=== PATIENT | female | born 1985 | race Caucasian/White ===

== ENCOUNTER 2017-12-25 19:41 | Emergency (ER) | payer SELFPAY ==
[~2017-12-25] VITALS: Ht 172.7 cm; Wt 95.5 kg
[2017-12-25 19:43] VITALS: BP 177/106; PULSE 72; RESP 16; TEMP 98.1; O2SAT 100
[2017-12-25] MEDS ORDERED: BACL10TA PO (19:53)
--- NOTE | 2017-12-25 19:55 | PD ---
HPI Chief Complaint: Back/ Neck Pain or Injury Time Seen by Provider: 19:51 Travel History International Travel<30 days: No Contact w/Intl Traveler<30days: No Traveled to known affect area: No History of Present Illness HPI 32-year-old female presents for evaluation of left-sided neck pain. She woke up this morning with this pain. The pain is a sharp pain which is worse with movement of the neck. She denies any injuries. She denies any numbness, tingling, weakness, radicular pain. She tried taking ibuprofen but the pain persisted. She has no other complaints at this time. PFS Past Medical History ?: Not LMP: beginning of December Social History Alcohol Use: No Tobacco Use: No Allergies-Medications (Allergen,Severity, Reaction): Coded Allergies: No Known Allergies (Unverified , 12/25/17) Reported Meds & Prescriptions Reported Meds & Active Scripts Active Baclofen 10 Mg Tab 10 Mg PO Q8HR 7 Days Review of Systems General / Constitutional: No: Fever, Chills HENT: No: Headaches, Vertigo Cardiovascular: No: Chest Pain or Discomfort Respiratory: No: Cough, Shortness of Breath Musculoskeletal: Positive: Pain, No: Limited ROM Skin: No Rash, No Itching Neurologic: No: Weakness Physical Exam Narrative GENERAL: Well-developed well-nourished female in no acute distress SKIN: Warm and dry. HEAD: Atraumatic. Normocephalic. EYES: Pupils equal and round. No scleral icterus. No injection or drainage. ENT: No nasal bleeding or discharge. Mucous membranes pink and moist. NECK: Trachea midline. No JVD. CARDIOVASCULAR: Regular rate and rhythm. No murmur appreciated. RESPIRATORY: No accessory muscle use. Clear to auscultation. Breath sounds equal bilaterally. GASTROINTESTINAL: Abdomen soft, non-tender, nondistended. Hepatic and splenic margins not palpable. MUSCULOSKELETAL: No obvious deformities. No clubbing. No cyanosis. No edema. There is no tenderness to palpation along the cervical midline spine or paravertebral musculature. The patient remains for range of motion of the neck. She has some pain in the left paravertebral musculature with rotational activities. Data Data Last Documented VS Vital Signs Date Time Temp Pulse Resp B/P (MAP) Pulse Ox O2 Delivery O2 Flow Rate FiO2 12/25/17 19:43 98.1 72 16 177/106 (517) 100 Orders Orders Ketorolac Inj (Toradol Inj) (12/25/17 20:00) Orphenadrine Inj (Norflex Inj) (12/25/17 20:00) [facility] Medical Decision Making Medical Screen Exam Complete: Yes Emergency Medical Condition: Yes Medical Record Reviewed: Yes Differential Diagnosis Cervical strain, spasm, radiculopathy Narrative Course The patient's pain appears to be muscular. She will be given Toradol and Norflex injections here and discharged with a short course of baclofen. Diagnosis Primary Impression: Cervical strain Additional Instructions: Medication as needed. Do not drive or drink alcohol when taking this medication. [id number] ibuprofen as needed. Alternate warm and cool compresses as needed. Return for any emergent medical conditions. Med/Other Pt SpecificInfo: Prescription(s) given Scripts Baclofen (Baclofen) 10 Mg Tab 10 MG PO Q8HR for 7 Days, TAB 0 Refills Prov: Tyrone Womack MD 12/25/17 Disposition: 01 DISCHARGE HOME Condition: Stable Magno Thapa Dec 25, 2017 19:55
[2017-12-25] MEDS ORDERED: KETOROLAC TROMETHAMINE 60 MG/2 ML (IM) VIAL IM ONE (20:00)
[2017-12-25] MEDS ORDERED: ORPHENADRINE INJ 60 MG/2 ML AMP IM ONE (20:00)
== END 2017-12-25 20:18 | disposition home or self-care (01) ==
LOC: NEPK 19:41
DX: S16.1XXA Strain of muscle, fascia and tendon at neck level, initial encounter (principal); X58.XXXA Exposure to other specified factors, initial encounter
CPT/HCPCS: 96372; 99283; J1885; J2360

== ENCOUNTER 2018-03-15 11:56 | Emergency (ER) | payer SELFPAY ==
[~2018-03-15] VITALS: Ht 172.7 cm; Wt 95.0 kg
[~2018-03-15 11:56] MED LIST: BACL10TA PO
[2018-03-15 12:00] VITALS: BP 156/72; PULSE 61; RESP 19; TEMP 98.3
[2018-03-15] MEDS ORDERED: TEGR200T PO (12:44)
[2018-03-15] MEDS ORDERED: RANI1TAB5 PO (12:44)
[2018-03-15] MEDS ORDERED: TOPA50TA7 PO (12:44)
[2018-03-15] MEDS ORDERED: SODIUM CHLOR 0.9% 1000 ML INJ 1,000 ML IV SCH (13:01)
[2018-03-15] MEDS ORDERED: SODIUM CHLORIDE 0.9% FLUSH 10 ML FLUSH IV FLUSH PRN (13:15)
[2018-03-15] MEDS ORDERED: DICYCLOMINE HCL 10 MG CAP PO ONE (13:15)
[2018-03-15] MEDS ORDERED: KETOROLAC TROMETHAMINE 30 MG/ML (IVP) VIAL IVP ONE (13:15)
--- NOTE | 2018-03-15 13:20 | PD ---
HPI Chief Complaint: Abdominal Pain Time Seen by Provider: 12:46 Travel History International Travel<30 days: No Contact w/Intl Traveler<30days: No Traveled to known affect area: No History of Present Illness HPI 32-year-old female with history of mild MR is here with complaints of left lower abdominal pain which started this morning. Patient denies nausea, vomiting, diarrhea, fever, chills, or other symptoms. She denies urinary symptoms. She is currently at the end of her menstrual cycle. She denies vaginal discharge. Pain is described as aching in the left lower quadrant. She states normal bowel movements. Pain is about a 6 out of 10. It is nonspecific. She is here with her mom. She has no known drug allergies. [facility] Past Medical History Developmental Delay: Yes GERD: Yes Medical other: Yes (TRIGEMINAL NEURALGIA) Tetanus Vaccination: Unknown Influenza Vaccination: No ?: Not LMP: 03/12/18 Past Surgical History Cholecystectomy: Yes Tonsillectomy: Yes Social History Alcohol Use: No Tobacco Use: No Substance Use: No Allergies-Medications (Allergen,Severity, Reaction): Coded Allergies: No Known Allergies (Unverified , 03/15/18) Reported Meds & Prescriptions Reported Meds & Active Scripts Active Reported Tegretol (Carbamazepine) 200 Mg Tab 100 Mg PO QID Topamax (Topiramate) 50 Mg Tab 50 Mg PO DAILY Ranitidine 75 (Ranitidine HCl) 75 Mg Tab 75 Mg PO DAILY Take 30 to 60 minutes before eating food or drinking beverages that cause heartburn. Review of Systems Except as stated in HPI: all other systems reviewed are Neg General / Constitutional: No: Fever Eyes: No: Visual changes HENT: No: Headaches Cardiovascular: No: Chest Pain or Discomfort Respiratory: No: Shortness of Breath Gastrointestinal: Positive: Abdominal Pain (See history of present illness), No : Nausea, Vomiting, Diarrhea, Indigestion, Dysphagia, Loss of Appetite Genitourinary: Positive: Vaginal Bleeding, No: Urgency, Frequency, Dysuria, Pelvic Pain (Currently menstrual), Flank Pain, Discharge Musculoskeletal: No: Pain Skin: No Rash Neurologic: No: Weakness Psychiatric: No: Depression Endocrine: No: Polydipsia Hematologic/Lymphatic: No: Easy Bruising Physical Exam Narrative GENERAL: Patient appears in no obvious distress. She is moderately obese. SKIN: Warm and dry. Normal color. Normal turgor. HEAD: Atraumatic. Normocephalic. EYES: Pupils equal and round. No scleral icterus. No injection or drainage. ENT: No nasal bleeding or discharge. Mucous membranes pink and moist. NECK: Trachea midline. No JVD. CARDIOVASCULAR: Regular rate and rhythm. RESPIRATORY: No accessory muscle use. Clear to auscultation. Breath sounds equal bilaterally. GASTROINTESTINAL: Abdomen soft, nondistended mild tenderness in the left lower quadrant, nondistended. No guarding or rebound. No palpable masses. No CVA tenderness. Normal bowel sounds in all quadrants. Hepatic and splenic margins not palpable. MUSCULOSKELETAL: Extremities without clubbing, cyanosis, or edema. No obvious deformities. NEUROLOGICAL: Awake and alert. No obvious cranial nerve deficits. Motor grossly within normal limits. Five out of 5 muscle strength in the arms and legs. Normal speech. PSYCHIATRIC: Appropriate mood and affect; insight and judgment normal. Data Data Last Documented VS Vital Signs Date Time Temp Pulse Resp B/P (MAP) Pulse Ox O2 Delivery O2 Flow Rate FiO2 03/15/18 12:00 98.3 61 19 156/72 (100) Orders Orders Complete Blood Count With Diff (03/15/18 13:) Comprehensive Metabolic Panel (03/15/18 13:) Lipase (03/15/18 13:) Urinalysis - C+S If Indicated (03/15/18 13:) Abdomen, Flat & Upright (03/15/18 ) Iv Access Insert/Monitor (03/15/18 13:) Ecg Monitoring (03/15/18 13:) Oximetry (03/15/18 13:) Sodium Chlor 0.9% 1000 Ml Inj (Ns 1000 M (03/15/18 13:01) Sodium Chloride 0.9% Flush (Ns Flush) (03/15/18 13:15) Dicyclomine (Bentyl) (03/15/18 13:15) Ketorolac Inj (Toradol Inj) (03/15/18 13:15) Ed Urine Pregnancytest Poc (03/15/18 13:01) Labs Laboratory Tests Test 03/15/18 13:00 03/15/18 13:15 Urine Color LIGHT-YELLOW Urine Turbidity CLEAR Urine pH 7.0 Urine Specific Bryan 1.010 Urine Protein NEG mg/dL Urine Glucose (UA) NEG mg/dL Urine Ketones NEG mg/dL Urine Occult Blood NEG Urine Nitrite NEG Urine Bilirubin NEG Urine Urobilinogen LESS THAN 2.0 MG/DL Urine Leukocyte Esterase NEG Urine Squamous Epithelial Cells 1 /hpf Urine Mucus FEW /lpf Microscopic Urinalysis Comment CULT NOT INDICATED White Blood Count 5.4 TH/MM3 Red Blood Count 4.62 MIL/MM3 Hemoglobin 11.7 GM/DL Hematocrit 36.1 % Mean Corpuscular Volume 78.2 FL Mean Corpuscular Hemoglobin 25.4 PG Mean Corpuscular Hemoglobin Concent 32.5 % Red Cell Distribution Width 13.9 % Platelet Count 288 TH/MM3 Mean Platelet Volume 9.5 FL Neutrophils (%) (Auto) 54.7 % Lymphocytes (%) (Auto) 29.3 % Monocytes (%) (Auto) 10.1 % Eosinophils (%) (Auto) 5.0 % Basophils (%) (Auto) 0.9 % Neutrophils # (Auto) 2.9 TH/MM3 Lymphocytes # (Auto) 1.6 TH/MM3 Monocytes # (Auto) 0.5 TH/MM3 Eosinophils # (Auto) 0.3 TH/MM3 Basophils # (Auto) 0.0 TH/MM3 CBC Comment DIFF FINAL Differential Comment Blood Urea Nitrogen 9 MG/DL Creatinine 0.76 MG/DL Random Glucose 95 MG/DL Total Protein 7.1 GM/DL Albumin 3.7 GM/DL Calcium Level 8.8 MG/DL Alkaline Phosphatase 81 U/L Aspartate Amino Transf (AST/SGOT) 10 U/L Alanine Aminotransferase (ALT/SGPT) 25 U/L Total Bilirubin 0.1 MG/DL Sodium Level 141 MEQ/L Potassium Level 4.0 MEQ/L Chloride Level 106 MEQ/L Carbon Dioxide Level 28.7 MEQ/L Anion Gap 6 MEQ/L Estimat Glomerular Filtration Rate 89 ML/MIN Lipase 320 U/L [facility] Medical Decision Making Medical Screen Exam Complete: Yes Emergency Medical Condition: Yes Medical Record Reviewed: Yes Differential Diagnosis Left lower quadrant tenderness. Urinary tract infection. Colitis. Bowel obstruction. Narrative Course Patient is medically stable at time of exam. Labs including CBC, CMP, urinalysis, urine . IV access is obtained the patient is given 30 mg Toradol IV, 10 mg Bentyl p.o., and 1000 mL normal saline bolus. KUB and upright x-rays are ordered. Labs are unremarkable. KUB shows no acute process. Patient is felt to have nonspecific left lower abdominal pain. Patient will be treated with ibuprofen 600 mg 4 times daily as needed #40. Patient should push fluids, and follow-up if symptoms worsen. Diagnosis Primary Impression: Left lower quadrant abdominal pain of unknown etiology Referrals: Primary Care Physician Patient Instructions: Abdominal Pain (ED), General Instructions Additional Instructions: Labs are unremarkable. KUB shows no acute process. Patient is felt to have nonspecific left lower abdominal pain. Patient will be treated with ibuprofen 600 mg 4 times daily as needed #40. Patient should push fluids, and follow-up if symptoms worsen. Med/Other Pt SpecificInfo: Prescription(s) given Disposition: DISCHARGE HOME Condition: Stable Rodrigue Pop March 15, 2018 13:20
[2018-03-15 13:31] LABS: AUTOMATED NEUTROPHIL # 2.9 TH/MM3 (1.8-7.7); BASOPHIL % 0.9 % (0.0-2.0); EOSINOPHIL # 0.3 TH/MM3 (0-0.4); HEMATOCRIT 36.1 % (35.0-46.0); HEMOGLOBIN 11.7 GM/DL (11.6-15.3); LYMPH % 29.3 % (9.0-44.0); LYMPHOCYTE # 1.6 TH/MM3 (1.0-4.8); MEAN CELL VOLUME 78.2 FL (80.0-100.0); MEAN CORPUSCULAR HEMOGLOBIN 25.4 PG (27.0-34.0); MEAN CORPUSCULAR HGB CONC 32.5 % (32.0-36.0); MEAN PLATELET VOLUME 9.5 FL (7.0-11.0); MONO % 10.1 % (0.0-8.0); MONOCYTE # 0.5 TH/MM3 (0-0.9); NEUT % 54.7 % (16.0-70.0); PLATELET COUNT 288 TH/MM3 (150-450); RED BLOOD COUNT 4.62 MIL/MM3 (4.00-5.30); RED CELL DISTRIBUTION WIDTH 13.9 % (11.6-17.2); WHITE BLOOD COUNT 5.4 TH/MM3 (4.0-11.0)
--- NOTE | 2018-03-15 13:32 | PD ---
Physical Exam Date Seen by Provider: March 15, 2018 Narrative This is a patient that I am seeing with the PA. She comes in with left lower quadrant abdominal pain. Data Data Last Documented VS Vital Signs Date Time Temp Pulse Resp B/P (MAP) Pulse Ox O2 Delivery O2 Flow Rate FiO2 03/15/18 12:00 98.3 61 19 156/72 (100) Orders Orders Complete Blood Count With Diff (03/15/18 13:) Comprehensive Metabolic Panel (03/15/18 13:) Lipase (03/15/18 13:) Urinalysis - C+S If Indicated (03/15/18:) Abdomen, Flat & Upright (03/15/18 ) Iv Access Insert/Monitor (03/15/18:) Ecg Monitoring (03/15/18:) Oximetry (03/15/18:) Sodium Chlor 0.9% 1000 Ml Inj (Ns 1000 M (03/15/18 13:) Sodium Chloride 0.9% Flush (Ns Flush) (03/15/18 13:15) Dicyclomine (Bentyl) (03/15/18 13:15) Ketorolac Inj (Toradol Inj) (03/15/18 13:15) Ed Urine Pregnancytest Poc (03/15/18 13:01) Labs Laboratory Tests Test 03/15/18 13:00 03/15/18 13:15 MDM Supervised Visit with REY: Yes Narrative Course I, Dr. Stevenson, have reviewed the advance practice practitioner's documentation and am in agreement, met with the patient face to face, made the diagnosis, and the medical decision making was done by me. *My assessment and Findings: Awake and alert and in no acute distress. Abdomen is soft and nontender in all quadrants. Please see Keshawn Pop PA-C's note for results of laboratory and radiographic evaluation, ED course, final diagnosis and disposition Kitty Stevenson MD March 15, 2018 13:32
[2018-03-15 13:35] LABS: BILIRUBIN, URINE NEG (NEG); BLOOD, URINE NEG (NEG); GLUCOSE,URINE NEG (NEG); KETONE, URINE NEG (NEG); MUCUS URINE FEW /lpf (OCC); NITRITE,URINE NEG (NEG); SQUAMOUS EPITHELIAL CELL URINE 1 /hpf (0-5); URINE COLOR LIGHT-YELLOW (YELLW/STRAW); URINE LEUKOCYTE ESTERASE NEG (NEG)
[2018-03-15 13:49] LABS: ALBUMIN 3.7 GM/DL (3.4-5.0); ALT (GPT) 25 U/L (10-53); AST (GOT) 10 U/L (15-37); BICARBONATE 28.7 MEQ/L (21.0-32.0); BLOOD UREA NITROGEN 9 MG/DL (7-18); CALCIUM 8.8 MG/DL (8.5-10.1); CHLORIDE 106 MEQ/L (98-107); CREATININE 0.76 MG/DL (0.50-1.00); GLOMERULAR FILTRATION RATE 89 ML/MIN (>89); GLUCOSE,RANDOM 95 MG/DL (74-106); SODIUM (NA) 141 MEQ/L (136-145)
[2018-03-15 13:52] LABS: ALKALINE PHOSPHATASE 81 U/L (45-117); TOTAL BILIRUBIN ADULT 0.1 MG/DL (0.2-1.0); TOTAL PROTEIN 7.1 GM/DL (6.4-8.2)
--- NOTE | 2018-03-15 14:35 | RADRPT ---
EXAM DATE/TIME: 03/15/2018 13:42 [place] COMPARISON: No previous studies available for comparison. INDICATIONS : Nausea vomiting upper right abdomen pain. MEDICAL HISTORY : None. SURGICAL HISTORY : None. ENCOUNTER: Initial ACUITY: 1 day PAIN SCORE: 0/10 LOCATION: Bilateral abdomen FINDINGS: Surgical clips are present in the right upper quadrant from previous cholecystectomy. Phleboliths ove rlie the pelvis. Ruba gas pattern is nonspecific and benign. Nothing to suggest mass or visceromegal y. Regional skeleton is grossly intact. CONCLUSION: Nonspecific, benign abdomen appearance Phuc Pinon MD on March 15, 2018 at 14:32 Board Certified Radiologist. This report was verified electronically.
[2018-03-15] MEDS ORDERED: IBUP-232 PO (14:59)
== END 2018-03-15 15:12 | disposition home or self-care (01) ==
LOC: NEPD 11:56
DX: R10.32 Left lower quadrant pain (principal)
CPT/HCPCS: 74019; 80053; 81001; 83690; 84703; 85025; 96374; 99284; J1885; J7030